=== PATIENT | male | born 1975 | race Caucasian/White ===

== ENCOUNTER 2016-08-10 17:30 | Emergency (ER) | payer OTHER ==
[2016-08-10] MEDS ORDERED: RX INFO: IV CONTRAST WAS GIVEN 1 EACH MISC MISCELLANE PRN (17:57)
--- NOTE | 2016-08-10 18:14 | ED ---
Skin/Abscess/FB HPI - General Chief complaint: Skin/Abscess/Foreign Body Stated complaint: lump on left side of jaw Time Seen by Provider: 08/10/16 17:48 Source: patient, RN notes reviewed Mode of arrival: ambulatory Limitations: no limitations - History of Present Illness Initial comments: Patient is a 41-year-old male presents to the emergency room for evaluation of a lump over left-side of jaw. Patient states he noticed a small hard lump on the left side of his jaw for the past 3-4 months. Patient states today the area appears a little larger than it has been and felt that he needed to have it evaluated. Patient denies any significant pain or drainage at the area. Patient does state that he has a plate placed on the left side of his mandible about 3 or 4 years ago. Patient states he's worried that the plate is becoming infected. Patient denies following up with his surgeon or primary care provider about this issue. Patient denies throat pain, ear pain, fevers, chills. Patient denies any history of abscesses. Patient denies any history of MRSA. - Related Data Home Medications Medication Instructions Recorded Confirmed No Known Home Medications [No 10/30/14 08/10/16 Known Home Medications] Allergies Allergy/AdvReac Type Severity Reaction Status Date / Time No Known Allergies Allergy Verified 08/10/16 17:36 Review of Systems ROS Statement: Those systems with pertinent positive or pertinent negative responses have been documented in the HPI. ROS Other: All systems not noted in ROS Statement are negative. Past Medical History Past Medical History: Asthma History of Any Multi-Drug Resistant Organisms: None Reported Past Surgical History: Orthopedic Surgery Additional Past Surgical History / Comment(s): plate in jaw; screws in elbow Past Psychological History: No Psychological Hx Reported Smoking Status: Current every day smoker Past Alcohol Use History: Occasional Past Drug Use History: None Reported General Exam - General Exam Comments Initial Comments: Sitting in exam room in no acute distress. Limitations: no limitations General appearance: alert, in no apparent distress Head exam: Present: atraumatic, normocephalic, normal inspection Eye exam: Present: normal appearance ENT exam: Present: normal exam, other (1cm palpable lump over the mid left mandible. No fluctuance noted. No surrounding erythema. No warmth on palpation.) Neck exam: Present: normal inspection Respiratory exam: Absent: respiratory distress Extremities exam: Present: normal inspection Back exam: Present: normal inspection Neurological exam: Present: alert, oriented X3, CN II-XII intact, normal gait Psychiatric exam: Present: normal affect, normal mood Skin exam: Present: warm, dry, intact, normal color. Absent: rash Course Vital Signs 08/10/16 08/10/16 17:34 19:35 Temperature 97.8 F 98.2 F Pulse Rate 86 83 Respiratory 18 16 Rate Blood Pressure 138/80 135/59 O2 Sat by Pulse 98 99 Oximetry Medical Decision Making - Medical Decision Making Patient is a 41-year-old male presents emergency room for evaluation of lump over her left-side of mandible. CT of soft tissue neck was ordered to rule out possible abscess at postsurgical area. CT soft tissue neck with contrast: Cutaneous 1 cm nodular density adjacent to the left enma-mandible of uncertain significance. Advised patient to follow up with ear, nose and throat specialist or his surgeon for further evaluation. Patient states he understands everything that was discussed with him. Return parameters discussed. Case discussed with Dr. Santos. - Radiology Data Radiology results: report reviewed, image reviewed Disposition Clinical Impression: Mass of soft tissue of face Disposition: HOME SELF-CARE Condition: Good Instructions: Soft Tissue Mass (ED) Additional Instructions: Please follow up with ear, nose and throat specialist for further evaluation. If any new symptom arises, symptoms worsen or fever develops, return to ER as soon as possible. Referrals: Kim River MD [Primary Care Provider] - 1-2 days Chacorta Hart MD [STAFF PHYSICIAN] - 1-2 days Time of Disposition: 19:27
--- NOTE | 2016-08-10 18:54 | CT ---
EXAMINATION TYPE: CT soft tissue neck w con DATE OF EXAM: 08/10/2016 6:44 PM COMPARISON: NONE HISTORY: Pt state of lump on left side of mandible x3 months. CT DLP: 589 mGycm Automated exposure control for dose reduction was used. CONTRAST: CT scan of the neck is performed following with IV Contrast, patient injected with 100 mL of Omnipaqu e 300. Axial images are obtained, coronal and sagittal reformatted images are reviewed. FINDINGS: There is normal branching pattern of the great vessels on the aortic arch. Thyroid gland is symmetric . There is normal contrast opacification of the carotid arteries and jugular veins. No evidence of a pharyngeal mass. Epiglottis appears normal. Submandibular salivary glands are symmetric. The parotid glands are symmetric. The mandibular ring is intact. Maxilla is intact. There is normal appearance of the mastoid sinuses. Temporal bones appear intact. I see no pathologic enhancement. There is a 1 cm cutaneous density adjacent to the left hemimandible is probably palpable. IMPRESSION: Cutaneous 1 cm nodular density adjacent to the left hemimandible of uncertain significa nce. This should be correlated with the physical exam. No other mass seen.
[2016-08-10 19:52] VITALS: BP 135/59; PULSE 83; RESP 16; TEMP 98.2
== END 2016-08-10 19:35 | disposition home or self-care (01) ==
LOC: EC 17:30
DX: R22.0 Localized swelling, mass and lump, head (principal); F17.200 Nicotine dependence, unspecified, uncomplicated
CPT/HCPCS: 70491; 99283; Q9967

== ENCOUNTER 2017-08-10 16:58 | Inpatient (IN) | payer OTHER ==
[2017-08-10] MEDS: NALOXONE 0.4 MG/ML 10 ML VIAL IVP STA ×2 (16:58→17:03)
[2017-08-10 17:03] LABS: Glucose,Whole Blood 180 mg/dL (75-99)
[2017-08-10] MEDS ORDERED: SODIUM CHLORIDE 0.9% 500 ML IV STA (17:20)
[2017-08-10 17:39] LABS: HCT 50.1 % (39.0-53.0); HGB 15.9 gm/dL (13.0-17.5); MCH 30.5 pg (25.0-35.0); MCHC 31.8 g/dL (31.0-37.0); MCV 96.1 fL (80.0-100.0); Mean Platelet Volume 6.4; Platelet Count 263 k/uL (150-450); RBC 5.21 m/uL (4.30-5.90)
--- NOTE | 2017-08-10 17:47 | XR ---
EXAMINATION TYPE: XR chest 1V portable DATE OF EXAM: 08/10/2017 COMPARISON: Chest x-ray April 13, 2014. HISTORY: Difficulty in breathing. Possible drug overdose. TECHNIQUE: Single AP portable frontal upright view of the chest is obtained. FINDINGS: Diminished inspiration is seen on current study. There is no focal air space opacity, pleur al effusion, or pneumothorax seen. The cardiac silhouette size is within normal limits. The osseou s structures are intact. IMPRESSION: Diminished inspiration without suspicious acute pulmonary process.
[2017-08-10 17:49] LABS: ALT 32 U/L (21-72); AST 28 U/L (17-59); Acetaminophen <10.0 ug/mL; Albumin 4.4 g/dL (3.5-5.0); Alkaline Phosphatase 52 U/L (38-126); Anion Gap 16 mmol/L; Blood Urea Nitrogen 10 mg/dL (9-20); Calcium 8.2 mg/dL (8.4-10.2); Carbon Dioxide 23 mmol/L (22-30); Chloride 103 mmol/L (98-107); Glucose 215 mg/dL (74-99); Potassium 3.5 mmol/L (3.5-5.1); Salicylate <1.0 mg/dL; Sodium 142 mmol/L (137-145); Total Bilirubin 0.5 mg/dL (0.2-1.3)
[2017-08-10 17:50] LABS: Cocaine Screen,Urine Not Detected (NotDetected); Phencyclidine Screen,Urine Not Detected (NotDetected); Urn Cannabinoid Scrn Not Detected (NotDetected)
[2017-08-10 17:51] LABS: Amphetamine Screen,Urine Detected (NotDetected); Barbiturate Screen,Urine Not Detected (NotDetected); Benzodiazepines Screen,Urine Not Detected (NotDetected); Methadone Screen, Urine Not Detected (NotDetected); Opiate Screen,Urine Detected (NotDetected); Oxycodone Screen, Urine Not Detected (NotDetected); Tricyclic Antidepressant,Urine Not Detected (NotDetected)
[2017-08-10 17:52] LABS: Alcohol 260 mg/dL
[2017-08-10 18:13] LABS: Lymphocytes # (M) 6.49 k/uL (1.0-4.8); Monocytes # (M) 0.55 k/uL (0-1.0); Neutrophils # (M) 3.96 k/uL (1.3-7.7); Neutrophils % (M) 36 %; Nucleated Red Blood Cells 0 /100 WBC (0-0); Total Cells Counted 100
--- NOTE | 2017-08-10 19:19 | ED ---
General Adult HPI - General Chief complaint: Overdose Stated complaint: Unresponsive Time Seen by Provider: 08/10/17 17:05 Source: EMS, RN notes reviewed Mode of arrival: EMS Limitations: no limitations - History of Present Illness Initial comments: 42-year-old male presents by EMS apneic, cyanotic, pinpoint pupils. Given 1.6 mg Narcan prior to arrival. No improvement in symptoms. Presents being bagged by EMS. - Related Data Home Medications Medication Instructions Recorded Confirmed No Known Home Medications [No 08/10/17 08/10/17 Known Home Medications] Allergies Allergy/AdvReac Type Severity Reaction Status Date / Time No Known Allergies Allergy Verified 08/10/17 18:47 Review of Systems ROS Statement: Those systems with pertinent positive or pertinent negative responses have been documented in the HPI. ROS Other: All systems not noted in ROS Statement are negative. Past Medical History Past Medical History: Unable to Obtain Past Surgical History: Unable to Obtain General Exam - General Exam Comments Initial Comments: Exam after 9.6 mg of Narcan administered Limitations: no limitations General appearance: alert, appears intoxicated Head exam: Present: atraumatic, normocephalic Eye exam: Present: normal appearance, PERRL ENT exam: Present: normal exam Neck exam: Present: normal inspection. Absent: tenderness, meningismus Respiratory exam: Present: normal lung sounds bilaterally. Absent: respiratory distress, wheezes Cardiovascular Exam: Present: regular rate, normal rhythm GI/Abdominal exam: Present: soft. Absent: distended, tenderness Extremities exam: Present: normal inspection, normal capillary refill. Absent: pedal edema Back exam: Present: normal inspection, full ROM. Absent: tenderness Neurological exam: Present: alert, oriented X3. Absent: motor sensory deficit Psychiatric exam: Present: normal affect, normal mood, flat affect. Absent: suicidal ideation Skin exam: Present: warm, dry, intact. Absent: cyanosis, diaphoretic Course Vital Signs 08/10/17 08/10/17 08/10/17 17:00 17:55 18:10 Pulse Rate 101 H 87 83 Respiratory 20 18 18 Rate Blood Pressure 125/80 134/88 127/92 O2 Sat by Pulse 90 L 96 Oximetry 08/10/17 08/10/17 08/10/17 18:22 18:52 19:07 Pulse Rate 83 83 80 Respiratory 18 18 18 Rate Blood Pressure 131/92 128/85 129/83 O2 Sat by Pulse 100 Oximetry 08/10/17 19:57 Pulse Rate 91 Respiratory 18 Rate Blood Pressure 115/75 O2 Sat by Pulse 94 L Oximetry - Reevaluation(s) Reevaluation #1: 08/10/17 20:45 On reevaluation, patient remains somnolent, he is arousable to voice. He denies suicidal ideation or attempt, however his family members are concerned this was a suicide attempt, they state that he takes drugs whenever he drinks alcohol. EKG Findings - EKG Comments: EKG Findings:: EKG shows normal sinus rhythm, prolonged QT 509, ventricular rate 93, para 170, QS duration 118 no signs of ischemia Medical Decision Making - Medical Decision Making 42-year-old male presenting with opiate overdose and polysubstance abuse, as well as alcohol intoxication. Serum alcohol is 260, CBC and CMP are within normal limits. Chest x-ray unremarkable. Urine drug screen positive for opiates, amphetamines, methamphetamines. Patient admits to taking opiate overdose. He denies heroin use. Given the fact that these are longer acting medications and the patient remains somewhat somnolent while emergency Department he will be placed in observation. This is also secondary to prolonged QT on EKG. This was reevaluated in the morning. Psychiatry be asked to evaluate the patient for concern polysubstance abuse and possible suicide attempt. - Lab Data Result diagrams: 08/10/17 17:02 08/10/17 17:02 Lab Results 08/10/17 08/10/17 08/10/17 Range/Units 17:01 17:02 17:02 WBC 11.0 H (3.8-10.6) k/uL RBC 5.21 (4.30-5.90) m/uL Hgb 15.9 (13.0-17.5) gm/dL Hct 50.1 (39.0-53.0) % MCV 96.1 (80.0-100.0) fL MCH 30.5 (25.0-35.0) pg MCHC 31.8 (31.0-37.0) g/dL RDW 13.0 (11.5-15.5) % Plt Count 263 (150-450) k/uL Neutrophils % (Manual) 36 % Lymphocytes % (Manual) 59 % Monocytes % (Manual) 5 % Neutrophils # (Manual) 3.96 (1.3-7.7) k/uL Lymphocytes # (Manual) 6.49 H (1.0-4.8) k/uL Monocytes # (Manual) 0.55 (0-1.0) k/uL Nucleated RBCs 0 (0-0) /100 WBC Manual Slide Review Performed RBC Morphology Normal Sodium 142 (137-145) mmol/L Potassium 3.5 (3.5-5.1) mmol/L Chloride 103 (98-107) mmol/L Carbon Dioxide 23 (22-30) mmol/L Anion Gap 16 mmol/L BUN 10 (9-20) mg/dL Creatinine 0.80 (0.66-1.25) mg/dL Est GFR (MDRD) Af Amer >60 (>60 ml/min/1.73 sqM) Est GFR (MDRD) Non-Af >60 (>60 ml/min/1.73 sqM) Glucose 215 H (74-99) mg/dL POC Glucose (mg/dL) 180 H (75-99) mg/dL POC Glu Chief Growth Officer ID Jorge Luis Kent Calcium 8.2 L (8.4-10.2) mg/dL Total Bilirubin 0.5 (0.2-1.3) mg/dL AST 28 (17-59) U/L ALT 32 (21-72) U/L Alkaline Phosphatase 52 (38-126) U/L Total Protein 7.0 (6.3-8.2) g/dL Albumin 4.4 (3.5-5.0) g/dL Salicylates <1.0 mg/dL Urine Opiates Screen (NotDetected) Ur Oxycodone Screen (NotDetected) Urine Methadone Screen (NotDetected) Ur Propoxyphene Screen (NotDetected) Acetaminophen <10.0 ug/mL Ur Barbiturates Screen (NotDetected) U Tricyclic Antidepress (NotDetected) Ur Phencyclidine Scrn (NotDetected) Ur Amphetamines Screen (NotDetected) U Methamphetamines Scrn (NotDetected) U Benzodiazepines Scrn (NotDetected) Urine Cocaine Screen (NotDetected) U Marijuana (THC) Screen (NotDetected) Serum Alcohol 260 mg/dL 08/10/17 Range/Units 17:02 WBC (3.8-10.6) k/uL RBC (4.30-5.90) m/uL Hgb (13.0-17.5) gm/dL Hct (39.0-53.0) % MCV (80.0-100.0) fL MCH (25.0-35.0) pg MCHC (31.0-37.0) g/dL RDW (11.5-15.5) % Plt Count (150-450) k/uL Neutrophils % (Manual) % Lymphocytes % (Manual) % Monocytes % (Manual) % Neutrophils # (Manual) (1.3-7.7) k/uL Lymphocytes # (Manual) (1.0-4.8) k/uL Monocytes # (Manual) (0-1.0) k/uL Nucleated RBCs (0-0) /100 WBC Manual Slide Review RBC Morphology Sodium (137-145) mmol/L Potassium (3.5-5.1) mmol/L Chloride (98-107) mmol/L Carbon Dioxide (22-30) mmol/L Anion Gap mmol/L BUN (9-20) mg/dL Creatinine (0.66-1.25) mg/dL Est GFR (MDRD) Af Amer (>60 ml/min/1.73 sqM) Est GFR (MDRD) Non-Af (>60 ml/min/1.73 sqM) Glucose (74-99) mg/dL POC Glucose (mg/dL) (75-99) mg/dL POC Glu Chief Growth Officer ID Calcium (8.4-10.2) mg/dL Total Bilirubin (0.2-1.3) mg/dL AST (17-59) U/L ALT (21-72) U/L Alkaline Phosphatase (38-126) U/L Total Protein (6.3-8.2) g/dL Albumin (3.5-5.0) g/dL Salicylates mg/dL Urine Opiates Screen Detected H (NotDetected) Ur Oxycodone Screen Not Detected (NotDetected) Urine Methadone Screen Not Detected (NotDetected) Ur Propoxyphene Screen Not Detected (NotDetected) Acetaminophen ug/mL Ur Barbiturates Screen Not Detected (NotDetected) U Tricyclic Antidepress Not Detected (NotDetected) Ur Phencyclidine Scrn Not Detected (NotDetected) Ur Amphetamines Screen Detected H (NotDetected) U Methamphetamines Scrn Detected H (NotDetected) U Benzodiazepines Scrn Not Detected (NotDetected) Urine Cocaine Screen Not Detected (NotDetected) U Marijuana (THC) Screen Not Detected (NotDetected) Serum Alcohol mg/dL Critical Care Time Critical Care Time: Yes Total Critical Care Time: 35 Disposition Clinical Impression: Drug overdose Disposition: ADMITTED IP TO THIS [facility] Condition: Stable Referrals: Kim River MD [Primary Care Provider] - 1-2 days Decision to Admit Reason: Admit from EC Decision Date: 08/10/17 Decision Time: 20:47
[2017-08-10] MEDS ORDERED: NALOXONE 0.4 MG/ML 1 ML VIAL IV PRN (20:44)
[2017-08-10] MEDS ORDERED: SODIUM CHLORIDE 0.9% 1,000 ML IV SCH (20:45)
[2017-08-11 00:57] VITALS: BMI 29.7
[2017-08-11 01:01] VITALS: RESP 16
--- NOTE | 2017-08-11 04:42 | HP ---
HISTORY AND PHYSICAL DATE OF ADMISSION: 08/10/2017 CHIEF COMPLAINT: Unresponsiveness. HISTORY: This 42-year-old gentleman who had past medical history of substance abuse including alcohol, being followed in the outpatient setting by no primary physician, apparently was found unresponsive by friends and the patient was taken to [facility] and admitted for further evaluation and treatment. Patient is obtunded. The patient had received multiple doses of Narcan 10 mg IV Narcan. After regaining some level of consciousness, the patient reports some type of drug intake, but which is the exact etiology is not clear at this time. The drug screen is positive for multiple substances including opiates, amphetamines, methamphetamines, and alcohol level is 260. Glucose also elevated. Detailed history could not be taken from the patient because the patient is stuporous. Most of the history was taken my discussion with staff, the ER physician and also discussion with both 2 sisters at the bedside. PAST MEDICAL HISTORY: No history of heart disease or strokes. SOCIAL HISTORY: History of polysubstance as mentioned earlier. FAMILY HISTORY: Could not be taken. REVIEW OF SYSTEM: Could not be taken because of the change in mental status. MEDICATION: None. ALLERGIES: None. PHYSICAL EXAM: Patient is stuporous. Pulse is 80, blood pressure 120/80, respiration 18, temperature 96.9, pulse ox 94% on 2 L. HEENT conjunctivae normal. Oral mucosa moist. Neck is no jugular venous distention. No carotid bruit, no lymph node enlargement. Cardiovascular system: S1, S2. No S3, no S4. Respiratory: Breath sounds diminished in the bases. No rhonchi. No crackles. ABDOMEN: Soft, nontender. No mass palpable. Legs no edema. No swelling. NERVOUS SYSTEM: Higher functions as mentioned earlier, minimal movements noted. No focal deficits appreciated. SKIN: No ulcer, rash or bleeding. Lymphatics: No lymph nodes palpable in the neck, axillae or groin. Joints no active deforming arthropathy. LABS: WBC 11, otherwise, lymphocytes 6.49 and glucose 215. Drug screen noted. ASSESSMENT: 1. Status post drug overdoses. 2. Change in mental status acute metabolic encephalopathy secondary to drug overdoses. 3. Increased WBC possibly reactive. 4. Increased random blood sugar. 5. Polysubstance abuse. 6. History of ETOH. RECOMMENDATIONS AND DISCUSSION: In this 42-year-old gentleman who presented with multiple complex medical issues, we will monitor the patient closely, continue the current medications and symptomatic treatment. We will initiate Narcan. We continue with Narcan p.r.n. IV fluids. Neuro checks and as well as repeat labs. Recommend psychiatric consultation. Also recommended substance abuse counseling and treatment once the patient is improved, which was discussed at length with his sisters and the patient is also encouraged to follow up with primary physician as well. The overall prognosis is guarded because of multiple complex medical issues and further recommendations to follow. Try to avoid sedatives at this time. MMODL / IJN: [id number] /
[2017-08-11 09:12] VITALS: BP 106/57; PULSE 88; TEMP 98
--- NOTE | 2017-08-11 12:58 | CONS ---
CONSULTATION DATE OF CONSULTATION: 08/11/2017 PURPOSE OF CONSULTATION: Evaluate for substance abuse related issues and overdose of alcohol, opioids, amphetamines and methamphetamines. HISTORY OF PRESENTING ILLNESS: The patient did not provide a significant amount of information regarding his history. His sister was at bedside and she provided some additional information. He does indicate that he drinks once a week. He says that he drinks both beer and hard liquor. When I asked for details, the most he said was that he typically would drink a 12 pack. He says that he would drink a 12 pack once a week and that he did not drink more frequently than that. He said that his drinking has gone on for quite a long time, though he did not give details. When I asked him if he thought he had a drinking problem and needed help with drinking, he did say he recognized he had drinking problems and needed help. Patient apparently has had periods for 6 months where he has been free of alcohol according to the sister, it is not clear when his last period of sobriety was. When I asked the patient about what resources might be helpful to him including the possibility of an inpatient referral, the patient indicated that he did not feel he needed a referral to an inpatient unit. He was vague about whether or not he felt that an outpatient referral for substance abuse counseling would or would not be helpful. It is noteworthy that his sister shared that he had made a connection with [facility] in the past though again no details were provided. It is noted that the patient said he was drinking excessively last night and then took "pills". He said this was not anything that he had done before. He could not give any explanation as to why he took the drugs that he did or how he obtained them. He was vague about whether he had any other substance use issues beyond alcohol. He indicated that he did not smoke marijuana. As noted, his drug screen was positive for an alcohol level of 260, plus opioids, amphetamines and methamphetamines. I discussed interventions that might include either Vivitrol or ReVia. The patient does not have insurance. He did ask questions about whether or not ReVia would be available for him. The patient was vague about whether he thought he would need outside support to stay away from alcohol for the next 6 to 12 weeks to get through acute alcohol withdrawal. MENTAL STATUS: Patient was lying in bed. He gave fair eye contact. He did frequently look to the side apparently towards the television. His gaze bounced back and forth sometimes quite quickly. He spoke in a soft voice. He answered questions with very brief responses. He was not spontaneous or interactive. He gave only minimal details. His affect was flat. His mood reserved. He seemed to have a worried manner, that was difficult to say how distressed he was. He did not showing the indications of thought disorder. ASSESSMENT: This 42-year-old male is diagnosed with alcohol dependence and polysubstance abuse. I had an extensive discussion with the patient regarding treatment options. The patient declined a referral for inpatient substance abuse treatment. He did say he would be willing to go [facility] both for evaluation for services for substance use issues and also for possible referral to the [facility]. He asked questions about whether ReVia or Vivitrol would be accessible to him. I indicated that through the [facility] he should be able to get a prescription for ReVia though I am uncertain of the cost. I discussed treatment for depression and indicated that there is little benefit for antidepressants in the first 6 to 8 weeks of alcohol withdrawal, though it might be a critical treatment option. Beyond that point, we discussed that the main issue is for him to remain abstinent from alcohol through the next 6 to 8 weeks before he can get a better evaluation for broader mental health issues. The patient indicated that he did not have thoughts of harm to self or others. He stated that he did not do this overdose in any intentional way to harm himself. He could not offer an explanation as to why he did it other than he was likely intoxicated and uncertain of what behavior he was involved in. His sister was in agreement with the thought that he does not pose a the risk of danger to himself or others and also that he did not do this with any suicidal intent. I do recommend a referral to [facility] for followup. MMODL / IJN: [id number] /
--- NOTE | 2017-08-11 20:22 | DS ---
DISCHARGE SUMMARY DATE OF SERVICE: 08/11/2017. FINAL DIAGNOSES: 1. Status post drug overdose. 2. Change in mental status, metabolic encephalopathy secondary to drug overdose. 3. Increased white count, possibly reactive. 4. Increased random blood sugar. 5. History of polysubstance abuse. 6. History of ethanol. DISCHARGE DISPOSITION: The patient will be discharged in stable condition with guarded prognosis. Psychiatry cleared the patient for discharge. HISTORY OF PRESENT ILLNESS: This 42-year-old gentleman was admitted with possible drug overdose and change in mental status. Psychiatry saw the patient and recommended outpatient followup with [facility]. On examination, vitals are stable. CARDIOVASCULAR SYSTEM: S1, S2 muffled. ABDOMEN: Soft. NERVOUS SYSTEM: No focal deficit. DISCHARGE ADVICE AND MEDICATIONS: 1. Diet is cardiac. 2. Activity limited until followup. 3. Follow up with Dr. River in 2 to 3 days. 4. Follow up with Psychiatry as advised. 5. Protonix 40 mg p.o. daily. 6. Drug and substance abuse counseling. MMSANDRAL / IJN: [id number] /
== END 2017-08-11 12:04 | disposition home or self-care (01) | DRG 917 ==
LOC: EC 16:58 → MERGE 20:45 → 6SEL 20:45
PROVIDERS: ADMIT Hospitalist; ATTEND Hospitalist
DX: T40.601A Poisoning by unspecified narcotics, accidental (unintentional), initial encounter (principal); G92 Toxic encephalopathy; F10.229 Alcohol dependence with intoxication, unspecified; Y92.9 Unspecified place or not applicable; F19.10 Other psychoactive substance abuse, uncomplicated; I45.81 Long QT syndrome; D72.829 Elevated white blood cell count, unspecified; R73.9 Hyperglycemia, unspecified; Y90.8 Blood alcohol level of 240 mg/100 ml or more
CPT/HCPCS: 36415; 71045; 80053; 80306; 80320; 83520; 85025; 93005; 96360; 96361; 96374; 99291